=== PATIENT | female | born 1955 | race Caucasian/White ===

== ENCOUNTER 2022-02-19 04:36 | Emergency (ER) | payer OTHER ==
[~2022-02-19] VITALS: Ht 167.6 cm; Wt 80.0 kg
[~2022-02-19 04:36] MED LIST: CYMBALTA60 MG OR; MILK OF MAG2 OR; XANAX1 MG OR
[2022-02-19 05:34] LABS: HEMATOCRIT 38.9 % (37.0-47.0); HEMOGLOBIN 12.6 g/dl (12.0-16.0); IMMATURE GRANULOCYTES 0.6 % (0.0-5.0); MEAN CELL VOLUME 94.2 fL CALC (80.0-100.0); MEAN CORPUSCULAR HGB 30.5 pG CALC (26.0-32.0); MEAN CORPUSCULAR HGB CONC 32.4 g/dL CAL (32.0-36.0); NEUT# 4.23 thou/uL (2.00-7.15); RED BLOOD COUNT 4.13 mill/uL (4.20-5.60)
[2022-02-19 05:48] LABS: ALKALINE PHOSPHATASE 96 u/l (38-126); BUN 20 mg/dL (8-23); BUN/CREATININE RATIO 21 (12-20 (CALC)); CARBON DIOXIDE 27 mmol/l (22-30); CHLORIDE 103 mmol/l (95-108); CREATININE 0.9 mg/dL (0.5-1.0); GFR FOR AFR.AMER. > 60 ML/MIN (>=60 (CALC)); GFR OTHER RACES > 60 ML/MIN (>=60 (CALC)); SGOT/AST 21 u/l (9-36); SODIUM 138 mmol/l (137-146); TOTAL PROTEIN 7.6 g/dL (6.3-8.2)
[2022-02-19 05:49] LABS: ANION GAP 12 (6-22 (CALC)); BILIRUBIN, TOTAL 0.3 mg/dL (0.0-1.4); POTASSIUM 3.8 mmol/l (3.5-5.1)
[2022-02-19 05:59] LABS: MYOGLOBIN 27 ng/mL (0 - 62)
[2022-02-19] MEDS ORDERED: ROBITUSSIN AC10 ML PO (06:21)
[2022-02-19] MEDS ORDERED: ZITHROMAX250 MG PO (06:21)
[2022-02-19 06:26] VITALS: BP 133/96
[2022-02-19] MEDS ORDERED: TESSALON PERLE100 MG PO (15:21)
== END 2022-02-19 06:38 | disposition home or self-care (01) | DRG 203 ==
LOC: ED 04:36
PROVIDERS: Emergency Medicine
DX: J40 Bronchitis, not specified as acute or chronic (principal); Z72.0 Tobacco use